=== PATIENT | female | born 1995 | race Caucasian/White ===

== ENCOUNTER 2019-05-20 23:03 | Emergency (ER) | payer OTHER ==
[2019-05-20 23:07] VITALS: BMI 28.3
--- NOTE | 2019-05-21 01:56 | PDOC ---
History of Present Illness - General Chief Complaint: Pain Stated Complaint: ABD PAIN Time Seen by Provider: 05/21/19 01:55 - History of Present Illness Initial Comments: 05/21/19 01:55 Ms. Olmos is a 23 yo female w/ pmh of gastritis under treatment of Dr. Ogden who presents for evaluation of 1 week history of epigastric pain she reports is typical of her gastritis. Patient reports she has not been good about taking her proscribed famotidine. Patient has previously had treatment for h. pylori months ago which improved her symptoms however reports her gastritis has been getting worse again. The patient denies chest pain, shortness of breath, headache and dizziness. Denies fever, chills, nausea, vomit, diarrhea and constipation. Denies dysuria, frequency, urgency and hematuria. Past History - Past Medical History Allergies/Adverse Reactions: Allergies Allergy/AdvReac Type Severity Reaction Status Date / Time No Known Allergies Allergy Verified 09/30/16 15:15 Home Medications: Ambulatory Orders Famotidine 10 mg PO DAILY 05/20/19 COPD: No GI Disorders: Yes (gastritis) - Immunization History Immunization Up to Date: Yes - Suicide/Smoking/Psychosocial Hx Smoking History: Never smoked Hx Alcohol Use: No Drug/Substance Use Hx: No Substance Use Type: None Review of Systems - Review of Systems Comments:: 05/21/19 01:56 GENERAL/CONSTITUTIONAL: No fever or chills. No weakness. HEAD, EYES, EARS, NOSE AND THROAT: No change in vision. No ear pain or discharge. No sore throat. CARDIOVASCULAR: No chest pain or shortness of breath RESPIRATORY: No cough, wheezing, or hemoptysis. GASTROINTESTINAL: +Epigastric pain as reported w/ single episode of N/V today. No diarrhea or constipation. GENITOURINARY: No dysuria, frequency, or change in urination. MUSCULOSKELETAL: No joint or muscle swelling or pain. No neck or back pain. SKIN: No rash NEUROLOGIC: No headache, vertigo, loss of consciousness, or change in strength/ sensation. ENDOCRINE: No increased thirst. No abnormal weight change HEMATOLOGIC/LYMPHATIC: No anemia, easy bleeding, or history of blood clots. ALLERGIC/IMMUNOLOGIC: No hives or skin allergy. *Physical Exam - Vital Signs Last Vital Signs Temp Pulse Resp BP Pulse Ox 97.9 F 70 19 114/78 100 05/20/19 23:05 05/20/19 23:05 05/20/19 23:05 05/20/19 23:05 05/20/19 23:05 - Physical Exam Comments: 05/21/19 01:56 GENERAL: Awake, alert, and fully oriented, in no acute distress HEAD: No signs of trauma, normocephalic, atraumatic EYES: PERRLA, EOMI, sclera anicteric, conjunctiva clear ENT: Auricles normal inspection, hearing grossly normal, nares patent, oropharynx clear without exudates. Moist mucosa NECK: Normal ROM, supple, no lymphadenopathy, JVD, or masses LUNGS: No distress, speaks full sentences, clear to auscultation bilaterally HEART: Regular rate and rhythm, normal S1 and S2, no murmurs, rubs or gallops, peripheral pulses normal and equal bilaterally. ABDOMEN: +Epigastric TTP. Soft, normoactive bowel sounds. No guarding, no rebound. No masses EXTREMITIES: Normal inspection, Normal range of motion, no edema. No clubbing or cyanosis. NEUROLOGICAL: Cranial nerves II through XII grossly intact. Normal speech, normal gait, no focal sensorimotor deficits SKIN: Warm, Dry, normal turgor, no rashes or lesions noted. Medical Decision Making - Medical Decision Making 05/21/19 03:25 Ms. Olmos is a 23 yo female w/ pmh as described who presents for evaluation of symptoms c/w existing gastritis Dx. Patient given GI cocktail and EKG ordered for r/o cardiac causes. Patient EKG normal sinus rhythm. Patient reporting improvement of symptoms. No concern for acute process at this time. Discharging to home. *DC/Admit/Observation/Transfer Diagnosis at time of Disposition: Epigastric pain - Discharge Dispostion Disposition: HOME - Referrals Referrals: Heidi Stuart MD [Primary Care Provider] - Dwaine Ogden MD [Staff Physician] - - Patient Instructions Printed Discharge Instructions: DI for Gastritis Additional Instructions: You were evaluate today in the ER for your abdominal pain. We believe your symptoms are from your known gastritis. Your EKG was normal. Please follow-up with Dr. Ogden for further evaluation. Take previously proscribed famotidine medication as written for further relief from symptoms. Return to ER if any fever, chills, shortness of breath, or other concerning symptoms. - Post Discharge Activity
[2019-05-21] MEDS ORDERED: MAG HYDROX/AL HYDROX/SIMETH 30 ML UNIT-DOSE CUP PO ONE (02:07)
[2019-05-21] MEDS ORDERED: LIDOCAINE VISCOUS 2% ORAL/TOP 20 ML UNIT-DOSE CUP MM ONE (02:07)
[2019-05-21] MEDS ORDERED: RANITIDINE HCL 150 MG/10 ML UNIT-DOSE PO ONE (02:08)
[2019-05-21] MEDS ORDERED: MAG HYDROX/AL HYDROX/SIMETH 30 ML UNIT-DOSE CUP ONE (02:53)
[2019-05-21] MEDS ORDERED: RANITIDINE HCL 150 MG TABLET (FP) ONE (02:53)
[2019-05-21] MEDS ORDERED: LIDOCAINE VISCOUS 2% ORAL/TOP 20 ML UNIT-DOSE CUP ONE (02:53)
--- NOTE | 2019-05-21 03:28 | PDOC ---
Attending Attestation - Resident Resident Name: Giancarlo Miller - ED Attending Attestation I have performed the following: I have examined & evaluated the patient, The case was reviewed & discussed with the resident, I agree w/resident's findings & plan - HPI HPI: 05/21/19 03:25 Pt comes with epigastric pain. She has been taking famotidine without relief - Physicial Exam PE: 05/21/19 03:25 Agree with resident exam. - Medical Decision Making 05/21/19 03:26 Pt has normal Exam and normal EKG and she doesn't require labs at this time. GI cocktail given and she is feeling better. Pt will follow with PMD/dental hygiene teacher. Pt will pay attention to diet and eat basic foods avoid acidic foods. Pt has had H pylorii in the past and it went away with triple therapy.
[2019-05-21 03:38] VITALS: BP 110/64; PULSE 62; TEMP 98.3
--- NOTE | 2019-05-22 09:05 | EKG ---
Test Reason : Blood Pressure : / mmHG Vent. Rate : 059 BPM Atrial Rate : 059 BPM P-R Int : 160 ms QRS Dur : 100 ms QT Int : 436 ms P-R-T Axes : 034 095 056 degrees QTc Int : 431 ms SINUS BRADYCARDIA RIGHTWARD AXIS BORDERLINE ECG NO PREVIOUS ECGS AVAILABLE Confirmed by DOROTA MURILLO MD ([id number]) on 05/22/2019 9:05:18 AM Referred By: Confirmed By:DOROTA MURILLO MD
== END 2019-05-21 03:36 | disposition home or self-care (01) ==
LOC: JER 23:03
DX: K29.70 Gastritis, unspecified, without bleeding (principal)
CPT/HCPCS: 93005; 93010; 99282-25

== ENCOUNTER 2019-09-17 15:10 | Emergency (ER) | payer OTHER ==
[2019-09-17 15:34] VITALS: BP 108/75; PULSE 100; TEMP 98.3; BMI 29.1
--- NOTE | 2019-09-17 17:05 | PDOC ---
History of Present Illness - General Chief Complaint: Urinary Problem Stated Complaint: EAST INFECTION Time Seen by Provider: 09/17/19 16:03 History Source: Patient Exam Limitations: Clinical Condition - History of Present Illness Initial Comments: 09/17/19 17:01 Patient with no significant past medical history presented with complaint of 3 weeks history of persisting urinary frequency, burning with urination and urinary urgency and intermittent yeast infection for 3 weeks. Patient report has been seen by her PCP twice for symptoms and given 2 courses of Ceftin ear antibiotics and terconazole yeast infection medication for symptoms but symptoms still persist. Patient reports she was seen by [facility] a week ago for symptoms and swab shows yeast infection which patient was treated with vaginal cream and patient reported just finished the antibiotic 3 days ago but symptoms still persist with yeast infection. Denies fever, chills fever nausea or vomiting. Patient report intermittent low back pain since starting symptoms. Denies any other symptoms Is this a multiple visit Asthma Patient?: No Timing/Duration: other (3 weeks) Past History - Past Medical History Allergies/Adverse Reactions: Allergies Allergy/AdvReac Type Severity Reaction Status Date / Time No Known Allergies Allergy Verified 09/17/19 15:25 Home Medications: Ambulatory Orders Ciprofloxacin [Cipro (Restricted To Id)] 500 mg PO Q12H 7 Days #14 tablet Ergocalciferol [Vitamin D2] 50,000 unit PO Q7D@1000 09/17/19 Famotidine [Pepcid -] 20 mg PO DAILY 09/17/19 Griseofulvin, Microsize [Griseofulvin] 500 mg PO BID 7 Days #14 tablet 09/17/19 Ketotifen Fumarate [Eye Itch Relief] 1 drop OU ASDIR 09/17/19 Simethicone [Mi-Acid] 80 mg PO ASDIR 09/17/19 COPD: No GI Disorders: Yes (gastritis) - Immunization History Immunization Up to Date: Yes - Psycho Social/Smoking Cessation Hx Smoking History: Never smoked Hx Alcohol Use: No Drug/Substance Use Hx: No Substance Use Type: None Review of Systems - Review of Systems Able to Perform ROS?: Yes Is the patient limited German proficient: No Constitutional: No: Chills, Fever, Malaise HEENTM: No: Symptoms Reported Respiratory: No: Symptoms reported Cardiac (ROS): No: Symptoms Reported ABD/GI: No: Symptoms Reported : Yes: Symptoms Reported, See HPI, Burning, Dysuria, Discharge, Frequency, Urgency. No: Flank Pain, Hematuria, Incontinence Musculoskeletal: Yes: Symptoms Reported, See HPI, Back Pain (intermittent back pains) Integumentary: No: Symptoms Reported, Rash All Other Systems: Reviewed and Negative *Physical Exam - Vital Signs Last Vital Signs Temp Pulse Resp BP Pulse Ox 98.3 F 100 H 18 108/75 100 09/17/19 15:30 09/17/19 15:30 09/17/19 15:30 09/17/19 15:30 09/17/19 15:30 - Physical Exam General Appearance: Yes: Nourished, Appropriately Dressed. No: Apparent Distress HEENT: positive: MARIELY, Normal ENT Inspection, Normal Voice, TMs Normal, Pharynx Normal Neck: positive: Supple Respiratory/Chest: positive: Lungs Clear, Normal Breath Sounds. negative: Respiratory Distress, Accessory Muscle Use Cardiovascular: positive: Regular Rhythm, Regular Rate. negative: Murmur Gastrointestinal/Abdominal: positive: Normal Bowel Sounds, Flat, Soft. negative : Tender, Organomegaly Musculoskeletal: positive: Normal Inspection. negative: CVA Tenderness Extremity: positive: Normal Capillary Refill, Normal Inspection, Normal Range of Motion Integumentary: positive: Normal Color Neurologic: positive: Fully Oriented, Alert, Normal Response Medical Decision Making - Medical Decision Making 09/17/19 17:03 Patient with no significant past medical history presented with complaint of 3 weeks history of persisting urinary frequency, burning with urination and urinary urgency and intermittent yeast infection for 3 weeks. Patient report has been seen by her PCP twice for symptoms and given 2 courses of Ceftin ear antibiotics and terconazole yeast infection medication for symptoms but symptoms still persist. Patient reports she was seen by [facility] a week ago for symptoms and swab shows yeast infection which patient was treated with vaginal cream and patient reported just finished the antibiotic 3 days ago but symptoms still persist with yeast infection. Denies fever, chills fever nausea or vomiting. Patient report intermittent low back pain since starting symptoms. Denies any other symptoms Clinical exam significant for no abdominal tenderness and no CVA tenderness. Normal lungs and cardiac exam. Patient afebrile. Given patient's symptoms are 3 weeks history not improved with Ceftin ear, repeat UA urine culture lab ordered. Urine hCG urine gonorrhea and chlamydia tests ordered. Patient be discharged home on Cipro antibiotics and griseofulvin for yeast infection will follow up with [facility] after lab results Discharge - Discharge Information Problems reviewed: Yes Clinical Impression/Diagnosis: Dysuria, Vaginal yeast infection Condition: Stable Disposition: HOME - Admission No - Additional Discharge Information Prescriptions: Ciprofloxacin [Cipro (Restricted To Id)] 500 mg PO Q12H 7 Days #14 tablet Griseofulvin, Microsize [Griseofulvin] 500 mg PO BID 7 Days #14 tablet - Follow up/Referral Referrals: Heidi Stuart MD [Primary Care Provider] - - Patient Discharge Instructions Patient Printed Discharge Instructions: DI for Vaginal Yeast Infection Additional Instructions: Take prescribed medication as prescribed for UTI and yeast infection. No douching. Follow-up with Pap with your [facility] next week - Post Discharge Activity
[2019-09-17 17:39] LABS: EPI CELLS 3.5 /HPF (0-5/HPF); HYALINE CASTS 1 /lpf (0-8); PH,URINE 5.5 (5.0-8.0); URINE APPEARANCE CLEAR; URINE BACTERIA 3.6 /hpf (NEGATIVE); URINE BILIRUBIN NEGATIVE (NEGATIVE); URINE COLOR YELLOW; URINE GLUCOSE (UA) NEGATIVE (NEGATIVE); URINE KETONE NEGATIVE (NEGATIVE); URINE LEUK ESTERASE TRACE (NEGATIVE); URINE NITRITE NEGATIVE (NEGATIVE); URINE PROTEIN NEGATIVE (NEGATIVE); URINE RBC 2 /hpf (0-4); URINE UROBILINOGEN 0.2 mg/dL (0.2-1.0); URINE WBC 3 /hpf (0-5)
== END 2019-09-17 17:58 | disposition home or self-care (01) ==
LOC: JERFT 15:10 → SUPCPDRO 15:10 → JERFT 17:58
DX: B37.3 Candidiasis of vulva and vagina (principal); R30.0 Dysuria
CPT/HCPCS: 36415; 81003; 84703; 87086; 87491; 87591; 99282-25

== ENCOUNTER 2019-10-06 09:19 | Emergency (ER) | payer OTHER ==
[2019-10-06 09:23] VITALS: BP 127/61; PULSE 81; TEMP 97.9; BMI 28.1
--- NOTE | 2019-10-06 10:46 | PDOC ---
History of Present Illness - General Chief Complaint: Vaginal Sxs Stated Complaint: VAGINAL DISCOMFORT Time Seen by Provider: 10/06/19 10:26 History Source: Patient - History of Present Illness Initial Comments: 10/06/19 11:55 23-year-old female complaining of vaginal discharge and vaginal itch for the last week. Patient also complaining of bilateral pelvic pain. Patient reports that she is unsure if she is at this point. She reports unprotected sex she was seen in this ER on 6 she was seen in this ER on 09/17/2019. Treated for UTI and yeast infection. Denies dysuria, urinary frequency, flank pain, fever/chills. recent GC on 09/17 is negative. 10/06/19 11:57 Past History - Past Medical History Allergies/Adverse Reactions: Allergies Allergy/AdvReac Type Severity Reaction Status Date / Time cephalexin [From Keflex] Allergy Verified 10/06/19 09:34 Home Medications: Ambulatory Orders Ciprofloxacin [Cipro (Restricted To Id)] 500 mg PO Q12H 7 Days #14 tablet Ergocalciferol [Vitamin D2] 50,000 unit PO Q7D@1000 09/17/19 Famotidine [Pepcid -] 20 mg PO DAILY 09/17/19 Griseofulvin, Microsize [Griseofulvin] 500 mg PO BID 7 Days #14 tablet 09/17/19 Ketotifen Fumarate [Eye Itch Relief] 1 drop OU ASDIR 09/17/19 Simethicone [Mi-Acid] 80 mg PO ASDIR 09/17/19 Fluconazole 150 mg PO ONCE #2 tablet 10/06/19 metroNIDAZOLE 0.75% VAG. GEL [Metrogel 0.75% *Vaginal Gel* -] 1 applic VG BID # 1 tube 10/06/19 COPD: No GI Disorders: Yes (gastritis) - Immunization History Immunization Up to Date: Yes - Psycho Social/Smoking Cessation Hx Smoking History: Never smoked Information on smoking cessation initiated: No Hx Alcohol Use: No Drug/Substance Use Hx: No Substance Use Type: None Review of Systems - Review of Systems Able to Perform ROS?: Yes Is the patient limited Omani proficient: No : Yes: Other (vaginal discharge) *Physical Exam - Vital Signs Last Vital Signs Temp Pulse Resp BP Pulse Ox 97.9 F 81 17 127/61 99 10/06/19 09:21 10/06/19 09:21 10/06/19 09:21 10/06/19 09:21 10/06/19 09:21 - Physical Exam General Appearance: Yes: Appropriately Dressed Female Pelvic Exam: positive: normal external exam, adnexal tenderness ( bilateral adenexal tenderness), other (copious white discharge) Musculoskeletal: positive: Normal Inspection. negative: CVA Tenderness Integumentary: positive: Normal Color, Dry ED Progress Note - Progress Note Progress Note: 10/06/19 11:59 A: vaginal discharge likely BV P: ua UCX GC trasnvaginal US with give metrogel Discharge - Discharge Information Problems reviewed: Yes Clinical Impression/Diagnosis: Bacterial vaginosis, Yeast infection of the vagina Disposition: HOME - Additional Discharge Information Prescriptions: Fluconazole 150 mg PO ONCE #2 tablet metroNIDAZOLE 0.75% VAG. GEL [Metrogel 0.75% *Vaginal Gel* -] 1 applic VG BID # 1 tube - Follow up/Referral Referrals: Heidi Stuart MD [Primary Care Provider] - - Patient Discharge Instructions Patient Printed Discharge Instructions: Bacterial Vaginosis Additional Instructions: apply metrogel twice daily x 5 day follow up with a skylights assembler as soon as possible. - Post Discharge Activity Work/Back to School Note: Back to Work
[2019-10-06 11:20] LABS: PH,URINE 6.5 (5.0-8.0); URINE APPEARANCE CLEAR; URINE BILIRUBIN NEGATIVE (NEGATIVE); URINE COLOR YELLOW; URINE GLUCOSE (UA) NEGATIVE (NEGATIVE); URINE KETONE NEGATIVE (NEGATIVE); URINE LEUK ESTERASE NEGATIVE (NEGATIVE); URINE NITRITE NEGATIVE (NEGATIVE); URINE PROTEIN NEGATIVE (NEGATIVE); URINE UROBILINOGEN 0.2 mg/dL (0.2-1.0)
== END 2019-10-06 12:55 | disposition home or self-care (01) ==
LOC: JERFT 09:19
DX: B37.3 Candidiasis of vulva and vagina (principal); N76.0 Acute vaginitis; B96.89 Other specified bacterial agents as the cause of diseases classified elsewhere; Z88.8 Allergy status to other drugs, medicaments and biological substances
CPT/HCPCS: 36415; 76830-TC; 81003; 84703; 87086; 87491; 87591; 99283-25

== ENCOUNTER 2022-03-19 17:55 | Emergency (ER) | payer OTHER ==
[2022-03-19 18:07] VITALS: BP 134/92; PULSE 90; TEMP 98; BMI 28.3
[2022-03-19 20:59] LABS: PH,URINE 6.5 (5.0-8.0); URINE APPEARANCE CLEAR; URINE BILIRUBIN NEGATIVE (NEGATIVE); URINE COLOR YELLOW; URINE GLUCOSE (UA) NEGATIVE (NEGATIVE); URINE KETONE NEGATIVE (NEGATIVE); URINE LEUK ESTERASE NEGATIVE (NEGATIVE); URINE NITRITE NEGATIVE (NEGATIVE); URINE PROTEIN NEGATIVE (NEGATIVE); URINE UROBILINOGEN 0.2 mg/dL (0.2-1.0)
[2022-03-19 21:01] LABS: HCG,QUALITATIVE URINE Negative
== END 2022-03-19 21:46 | disposition home or self-care (01) ==
LOC: JER 17:55
DX: R35.0 Frequency of micturition (principal)
CPT/HCPCS: 81003; 84703; 87086; 99283-25